=== PATIENT | male | born 1945 | race Hispanic/Latino ===

== ENCOUNTER 2022-03-09 14:16 | Observation (INO) | payer OTHER ==
[2022-03-09 15:29] LABS: Hemoglobin 12.6 g/dL (13.5-17.5); Mean Corpuscular Volume 88.3 fl (81.2-95.1); Mean Platelet Volume 8.5 fl (7.4-10.4); Platelet Count 231 10x3/uL (150-450); RBC Distribution Width 12.4 % (11.5-14.5); White Blood Cell (WBC) Count 4.9 10x3/uL (3.5-10.5)
[2022-03-09 15:30] LABS: MDiff Complete? YES
[2022-03-09 15:43] LABS: ALT (SGPT) 91 U/L (8-55); AST (SGOT) 69 U/L (5-34); Albumin 3.8 g/dL (3.4-4.8); Alkaline Phosphatase 64 U/L (40-110); Anion Gap 15 mmol/L (10-20); BUN (Urea Nitrogen) 24 mg/dL (8.4-25.7); Bilirubin, Total 0.4 mg/dL (0.2-1.2); Calc. Creatinine Clearance 0 mL/min (70-130); Calcium 9.1 mg/dL (7.8-10.44); Carbon Dioxide 21 mmol/L (23-31); Chloride 101 mmol/L (98-107); Glucose 135 mg/dL (83-110); Potassium 4.4 mmol/L (3.5-5.1); Protein, Total 7.8 g/dL (5.8-8.1); Sodium 133 mmol/L (136-145)
[2022-03-09 15:56] LABS: Eosinophils 3 % (0-10); Lymphocytes 34 % (21-51); Monocytes 10 % (0-10); Neutrophil 53 % (42-75)
[2022-03-09 15:57] LABS: Platelet Morphology Comment Appears Adequate
[2022-03-09] MEDS ORDERED: Lidocaine Viscous Sol 2% 15 ml UD Cup ONE (16:32)
[2022-03-09] MEDS ORDERED: Mag-Al Plus 1200 MG/1200 MG/120 MG/30 ML UDCUP ONE (16:32)
[2022-03-09] MEDS ORDERED: Ketorolac Tromethamine 30 MG/ML VIAL ONE (16:32)
[2022-03-09] MEDS ORDERED: HumaLOG 300 UNITS/3 ML VIAL SC PRN (17:06)
[2022-03-09] MEDS ORDERED: Dextrose 50% Abboject 50 ML SYRINGE SLOW IVP PRN (17:06)
[2022-03-09] MEDS ORDERED: Dextrose 5% in Water 1,000 ML IV PRN (17:06)
[2022-03-09] MEDS ORDERED: Aspirin Chewable 81 MG TAB PO SCH (17:30)
[2022-03-09 17:34] LABS: Lipase 78 U/L (8-78)
[2022-03-09 19:49] LABS: Troponin I Less than 0.010 ng/mL (< 0.028)
[2022-03-09 23:16] LABS: Troponin I Less than 0.010 ng/mL (< 0.028)
[2022-03-10 01:55] LABS: Hemoglobin A1c 10.3 % (4.0-6.0)
[2022-03-10 03:03] LABS: SARS-CoV-2 NAA Rapid Test Not Detected (NotDetected)
[2022-03-10] MEDS ORDERED: Morphine 2 MG/ML VIAL SLOW IVP PRN (03:23)
[2022-03-10] MEDS ORDERED: hydrALAZINE 20 MG/ML VIAL SLOW IVP PRN (03:24)
[2022-03-10 04:59] VITALS: BMI 27.9
[2022-03-10 05:05] LABS: Hemoglobin 13.7 g/dL (13.5-17.5); Mean Corpuscular HGB CONC 33.9 g/dL (32.0-36.0); Mean Corpuscular Hemoglobin 29.7 pg (27.0-33.0); Mean Corpuscular Volume 87.6 fl (81.2-95.1); Platelet Count 261 10x3/uL (150-450); RBC Distribution Width 12.3 % (11.5-14.5); Red Blood Cell (RBC) Count 4.61 10x6/uL (4.32-5.72)
[2022-03-10 05:19] LABS: Anion Gap 15 mmol/L (10-20); BUN (Urea Nitrogen) 21 mg/dL (8.4-25.7); Calc. Creatinine Clearance 88 mL/min (70-130); Calcium 9.4 mg/dL (7.8-10.44); Carbon Dioxide 24 mmol/L (23-31); Chloride 100 mmol/L (98-107); Cholesterol 152 mg/dl (< 200 Desired); Glucose 270 mg/dL (83-110); Potassium 4.5 mmol/L (3.5-5.1); Sodium 134 mmol/L (136-145)
[2022-03-10 05:20] LABS: Cardiac Risk 3.2 (Less than 4.5); HDL Cholesterol 47 mg/dL (>60 Neg Risk); LDL Cholesterol, Calculated 89 mg/dL; Triglycerides 82 mg/dL (Less than 150)
[2022-03-10] MEDS: HumaLOG 300 UNITS/3 ML VIAL SC PRN ×2 (06:35→16:31)
[2022-03-10 06:41] LABS: MDiff Complete? YES
[2022-03-10 06:45] LABS: Band 1 % (5-11); Eosinophils 4 % (0-10); Lymphocytes 31 % (21-51); Monocytes 20 % (0-10); Neutrophil 42 % (42-75); Reactive Lymphocytes 1 % (0-10)
[2022-03-10 06:46] LABS: Platelet Morphology Comment Appears Adequate; RBC Morphology Normal
[2022-03-10] MEDS ORDERED: Aspirin Chewable 81 MG TAB PO SCH (09:00)
[2022-03-10] MEDS ORDERED: Ventolin HFA Inhaler 60 PUFF INHALER INH PRN (16:03)
[2022-03-10] MEDS ORDERED: Albuterol Sulfate 2.5 mg/3 ml Neb NEB PRN (16:25)
[2022-03-10] MEDS ORDERED: Ipratropium Oral Inhaler INH SCH (17:00)
[2022-03-10] MEDS: Aspirin 81 mg Enteric Coated Tablet PO SCH (19:18)
[2022-03-10] MEDS: HYDROcodone/Acetaminophen 5/325 mg Tablet PO PRN (19:19)
[2022-03-10] MEDS: Ipratropium Bromide 2.5 ml Neb NEB SCH (19:38)
[2022-03-10] MEDS ORDERED: SELENIUM SULFIDE TP SCH (21:00)
[2022-03-10] MEDS: metFORMIN 500 MG TAB PO SCH (21:15)
[2022-03-10] MEDS: Terazosin HCl 5 MG CAP PO SCH (21:15)
[2022-03-10] MEDS: Atorvastatin Calcium 20 MG TAB PO SCH (21:15)
[2022-03-10] MEDS: Amlodipine 5 MG TAB PO SCH (21:15)
[2022-03-11] MEDS: HumaLOG 300 UNITS/3 ML VIAL SC PRN ×2 (06:58→16:05)
[2022-03-11] MEDS: Ipratropium Bromide 2.5 ml Neb NEB SCH ×4 (07:19→19:15)
[2022-03-11] MEDS: metFORMIN 500 MG TAB PO SCH ×2 (11:08→22:24)
[2022-03-11] MEDS: DULoxetine 30 MG CAP PO SCH (11:08)
[2022-03-11 13:36] LABS: Bilirubin Neg (Negative); Blood, Urine Negative (Negative); Clarity Clear (Clear); Glucose, Urine (Dipstick) >=1000 mg/dL (Negative); Ketone, Urine Negative (Negative); Leukocyte Negative (Negative); Nitrite Negative (Negative); Protein, Urine (Dipstick) Negative (Neg-Trace); Specific Gravity, Urine 1.015 (1.002-1.036); Urobilinogen Normal mg/dL (Less than 2)
[2022-03-11 13:40] LABS: Urine Culture Reflex No No
[2022-03-11 13:54] LABS: Bacteria/HPF None Seen HPF (None Seen); RBC/HPF None Seen HPF (0-3); Squamous Epithelial None Seen HPF (0-3); WBC/HPF None Seen HPF (0-3)
[2022-03-11] MEDS: HYDROcodone/Acetaminophen 5/325 mg Tablet PO PRN ×2 (16:04→22:42)
[2022-03-11] MEDS: Ondansetron PF 4 MG/2 ML Vial IVP PRN ×2 (16:04→22:41)
[2022-03-11] MEDS ORDERED: Magnesium Citrate 300 ML BOT PO SCH (18:00)
[2022-03-11] MEDS ORDERED: Senokot S 8.6-50 MG TAB PO SCH (18:00)
[2022-03-11] MEDS: Aspirin 81 mg Enteric Coated Tablet PO SCH (19:02)
[2022-03-11] MEDS: Atorvastatin Calcium 20 MG TAB PO SCH (22:23)
[2022-03-11] MEDS: Amlodipine 5 MG TAB PO SCH (22:23)
[2022-03-11] MEDS: Terazosin HCl 5 MG CAP PO SCH (22:24)
[2022-03-11] MEDS ORDERED: diphenhydrAMINE 50 MG CAP PO PRN (23:40)
[2022-03-12] MEDS: Ipratropium Bromide 2.5 ml Neb NEB SCH ×2 (07:05→11:10)
[2022-03-12] MEDS: DULoxetine 30 MG CAP PO SCH (09:17)
[2022-03-12] MEDS: metFORMIN 500 MG TAB PO SCH (09:17)
[2022-03-12 10:22] VITALS: BP 128/58; TEMP 96.9
== END 2022-03-12 11:10 | disposition home or self-care (01) ==
LOC: CSHERS 14:16 → EEVIPCON 14:16 → CSHTELE 20:40
PROVIDERS: ADMIT Student in an Organized Health Care Education/Training Program; ATTEND Hospitalist
DX: R07.89 Other chest pain (principal); I25.10 Atherosclerotic heart disease of native coronary artery without angina pectoris; E11.9 Type 2 diabetes mellitus without complications; J44.9 Chronic obstructive pulmonary disease, unspecified; K44.9 Diaphragmatic hernia without obstruction or gangrene; B18.2 Chronic viral hepatitis C; K21.9 Gastro-esophageal reflux disease without esophagitis; N40.0 Benign prostatic hyperplasia without lower urinary tract symptoms; Z20.822 Contact with and (suspected) exposure to COVID-19; Z79.4 Long term (current) use of insulin; Z79.82 Long term (current) use of aspirin; Z79.84 Long term (current) use of oral hypoglycemic drugs; Z79.899 Other long term (current) drug therapy; Z88.8 Allergy status to other drugs, medicaments and biological substances; Z95.1 Presence of aortocoronary bypass graft
CPT/HCPCS: 36415; 36416; 70450; 71045; 74176; 80048; 80053; 80061; 81001; 83036; 83690; 83735; 84443; 84484; 85025; 93005; 93010; 94760; 96374; 96375; 96376; G0378; J0360; J1815; J1885; J2270; J2405; U0002

== ENCOUNTER 2022-04-26 01:07 | Emergency (ER) | payer OTHER ==
[2022-04-26 01:58] LABS: Hemoglobin 11.9 g/dL (13.5-17.5); Mean Corpuscular HGB CONC 34.3 g/dL (32.0-36.0); Mean Corpuscular Hemoglobin 29.8 pg (27.0-33.0); Mean Platelet Volume 8.9 fl (7.4-10.4); Platelet Count 212 10x3/uL (150-450); RBC Distribution Width 12.3 % (11.5-14.5); Red Blood Cell (RBC) Count 3.99 10x6/uL (4.32-5.72); White Blood Cell (WBC) Count 4.6 10x3/uL (3.5-10.5)
[2022-04-26 02:02] LABS: ALT (SGPT) 77 U/L (8-55); AST (SGOT) 80 U/L (5-34); Albumin 3.5 g/dL (3.4-4.8); Alkaline Phosphatase 72 U/L (40-110); Anion Gap 13 mmol/L (10-20); BUN (Urea Nitrogen) 21 mg/dL (8.4-25.7); Bilirubin, Total 0.3 mg/dL (0.2-1.2); Calc. Creatinine Clearance 0 mL/min (70-130); Calcium 9.7 mg/dL (7.8-10.44); Carbon Dioxide 24 mmol/L (23-31); Chloride 102 mmol/L (98-107); Estimated GFR 90; Globulin 4.1 g/dL (2.4-3.5); Glucose 213 mg/dL (83-110); Potassium 4.2 mmol/L (3.5-5.1); Protein, Total 7.6 g/dL (5.8-8.1); Sodium 135 mmol/L (136-145)
[2022-04-26 02:06] LABS: %Neutrophils 30.1 % (40.0-75.0)
[2022-04-26 02:07] LABS: MDiff Complete? YES; Platelet Morphology Comment Appears Adequate
[2022-04-26 02:13] LABS: SARS-CoV-2 NAA Rapid Test Not Detected (NotDetected)
[2022-04-26 02:32] LABS: Lymphocytes 45 % (21-51); Monocytes 10 % (0-10); Neutrophil 45 % (42-75)
== END 2022-04-26 02:13 | disposition left against medical advice (07) ==
LOC: EEVIPCON 01:07 → CSHERS 01:07
DX: R07.9 Chest pain, unspecified (principal); Z20.822 Contact with and (suspected) exposure to COVID-19; E11.9 Type 2 diabetes mellitus without complications; K21.9 Gastro-esophageal reflux disease without esophagitis; E78.5 Hyperlipidemia, unspecified; J44.9 Chronic obstructive pulmonary disease, unspecified
CPT/HCPCS: 36415; 71045; 80053; 83880; 84484; 85025; 93005; U0002